=== PATIENT | male | born 1985 | race Hispanic/Latino ===

== ENCOUNTER 2023-02-06 18:53 | Emergency (ER) | payer SELFPAY ==
[~2023-02-06] VITALS: Ht 162.6 cm; Wt 83.6 kg
[2023-02-06 18:54] VITALS: BP 135/90; TEMP 99.3; O2SAT 98
[2023-02-06 20:11] LABS: BASO % 0.3 % (0.0-1.0); EOS % 0.6 % (0.0-3.0); HEMATOCRIT 43.3 % (42.0-52.0); HEMOGLOBIN 14.6 g/dl (13.5-17.5); LYMPH # 3.4 10^3/uL (1.5-5.0); LYMPH % 48.6 % (24.0-44.0); MEAN CORPUSCULAR HEMOGLOBIN 28.5 pg (27.0-33.0); MEAN CORPUSCULAR HGB CONC 33.7 g/dl (32.0-36.5); MEAN CORPUSCULAR VOLUME 84.6 fl (80.0-96.0); MONO # 0.5 10^3/uL (0.0-0.8); MONO % 6.8 % (2.0-8.0); NEUTROPHILS % 43.6 % (36.0-66.0); PLATELET COUNT, AUTOMATED 243 10^3/uL (150-450); RED BLOOD COUNT 5.12 10^6/uL (4.30-6.10); WHITE BLOOD COUNT 6.9 10^3/uL (4.0-10.0)
[2023-02-06] MEDS ORDERED: DOXYCYCLINE HYCLATE 100MG TABLET PO ONE (20:45)
[2023-02-06] MEDS ORDERED: DOXY-443 PO (20:46)
== END 2023-02-06 20:57 | disposition home or self-care (01) ==
LOC: M ED 18:53
DX: R21 Rash and other nonspecific skin eruption (principal)

== ENCOUNTER → 2023-04-25 | Outpatient (CLI) | payer OTHER ==
[~2023-04-25] MED LIST: DOXY-443 PO
[2023-04-28 16:07] LABS: IgG P18 AB Absent (.); IgG P23 AB Absent (.); IgG P28 AB Absent (.); IgG P30 AB Absent (.); IgG P39 AB Present (.); IgG P41 AB Absent (.); IgG P45 AB Absent (.); IgG P66 AB Absent (.); IgG P93 AB Absent (.); IgM P23 AB Absent (.); IgM P39 AB Absent (.); IgM P41 AB Present (.); LYME IgG WB INTERPRETATION Negative (.); LYME IgM WB INTERPRETATION Negative (.)
== END ==
LOC: M PLALAB 11:58
PROVIDERS: ATTEND Student in an Organized Health Care Education/Training Program
DX: S20.361A Insect bite (nonvenomous) of right front wall of thorax, initial encounter (principal); Y93.9 Activity, unspecified; Y92.9 Unspecified place or not applicable

== ENCOUNTER 2023-10-30 05:09 | Emergency (ER) | payer OTHER ==
[~2023-10-30] VITALS: Ht 165.1 cm; Wt 86.0 kg
[~2023-10-30 05:09] MED LIST changes: +DOXY-323 PO; -DOXY-443 PO
[2023-10-30] MEDS: PROPARACAINE 0.5% OPHTH SOL 15ML OU ONE (06:38)
[2023-10-30] MEDS: FLUORESCEIN OPHTH 1MG STRIP OU ONE (06:39)
[2023-10-30] MEDS ORDERED: OFLO5DRO OU (06:58)
[2023-10-30 07:16] VITALS: BP 123/87; TEMP 96.8; O2SAT 99
== END 2023-10-30 07:17 | disposition home or self-care (01) ==
LOC: M ED 05:09
DX: H10.32 Unspecified acute conjunctivitis, left eye (principal); Z79.2 Long term (current) use of antibiotics